=== PATIENT | female | born 1935 | race Caucasian/White ===

== ENCOUNTER → 2019-05-06 | Outpatient (CLI) | payer MEDICARE ==
--- NOTE | ~2019-05-06 | SLPPN ---
[place], [place] LANDSCAPE DESIGNER PROGRESS NOTE NAME: CAMMIE SOSA V UNIT #: [id number] ROOM: DOCTOR: WESLEY ORTEGA Patient Name: CAMMIE SOSA Date: 05/06/2019 Patient Date of : 1935 [facility] Start of Care: 05/03/2019 Reason for Treatment: PS Visits since start of care: 2 Primary Care Physician: WESLEY ORTEGA Referring Physician: WESLEY ORTEGA Speech-Language Pathology Treatment Note Reason for Visit PS Arrival Information Patient identity verified Subjective Initial evaluation created to initiate the electronic medical record. Please see [employer] for details. No indications of abuse or neglect Medical History Past Medical History Pneumonia Seizures SuperBill Visit Start Time 9:00 AM Visit End Time 10:00 AM Visit Duration 60 minutes Procedures CPT [place] Code Intervention Modifier Minutes Units 1601059 MOTION FLUOROSCOPY/SWALLOW 60 1 17570 Total Timed Minutes 0 Total Treatment Minutes 60 Therapist Signature(s) Signed By: Kelli Paredes MA CF-LANDSCAPE DESIGNER State License #: [id number] 05/06/2019, 2:48 PM CM:CYNTHIA 1451 1450 [facility]
--- NOTE | ~2019-05-06 | SLPREE ---
[place], [place] BEHAVIORAL HEALTH DIRECTOR PLAN OF CARE REEVALUATION NAME: CAMMIE SOSA V UNIT #: [id number] ROOM: DOCTOR: WESLEY ORTEGA Patient Name: CAMMIE SOSA Date: 05/11/2019 Patient Date of : 1935 [facility] Start of Care: 05/03/2019 Reason for Treatment: PS Visits since start of care: 3 Primary Care Physician: WESLEY ORTEGA Referring Physician: WESLEY ORTEGA Speech-Language Pathology Re-Evaluation Plan of Care Diagnosis Onset Date G45.9 Transient cerebral ischemic attack, unspecified 04/26/2019 I69.919 Unspecified symptoms and signs involving cognitive functions following unspecified cerebrovascular disease R47.01 Aphasia Reason for Visit PS Arrival Information Patient identity verified Subjective Patient seen for continued evaluation and beginning of treatment. She was pleasant and cooperative throughout duration of session. She reported continued fatigue and reports vision difficulties. She reported mid-line to peripheral right-sided visual difficulty, stating she feels like there is something in her vision or that the floor, table, etc. is moving. Patient reported having ongoing headache this week. No indications of abuse or neglect Medical History Past Medical History Pneumonia Seizures No changes to Allergies Assessment Assessment Patient demonstrating mild cognitive-linguistic deficits and mild language impairments. Recommended patient continue with treatment 1 time weekly to target skills to improve attention, memory, visuospatial skills, and executive functions. These skills are important for patient as she plans to return to work. MBS results revealed no penetration or aspiration across each evaluated consistency, and patient was recommended regular diet with safe swallowing strategies. Prognosis Excellent potential to reach the established goals Barriers to Lares and Goals Clinician Established Goals Short Term Goals 1. Patient will utilize strategies (circumlocution, gesturing, describing object, etc.) to compensate for word finding difficulties in structured task and increasing to conversational level with 90% accuracy across 3 consecutive sessions by 06/29/2019 - Modified. Patient will utilize strategies (circumlocution, gesturing, describing object, etc.) to [place], [place] BEHAVIORAL HEALTH DIRECTOR PLAN OF CARE REEVALUATION NAME: CAMMIE SOSA V UNIT #: [id number] ROOM: DOCTOR: WESLEY ORTEGA compensate for word finding difficulties in structured task and increasing to conversational level with 90% accuracy across 3 consecutive sessions by 06/29/2019 - Revised. 2. Patient will answer questions (yes/no, open-ended, multiple choice, etc.) following written material with 85% accuracy with fading clinician cues across 3 consecutive sessions by 2018 - Modified. Patient will answer questions (yes/no, open-ended, multiple choice, etc.) following written material with 85% accuracy with fading clinician cues across 3 consecutive sessions by - Revised. 3. Patient will use strategies with minimum clinician cuing to increase generative naming closer to average levels on 4/5 opportunities by 06/29/2019. 4. Patient will perform visual scanning tasks of increasing complexity with fading clinician cues with 85% accuracy on 4/5 opportunities by 06/29/2019. 5. Patient will use strategies (association, pneumonic devices, etc.) to demonstrate memory recall for verbally and visually presented stimulus with use of strategies with 80% accuracy on 4/5 opportunities by 06/29/2019. 6. Patient will demonstrate problem solving skills during structured tasks with minimal clinician cuing with 80% accuracy on 4/5 opportunities by 06/29/2019. 7. Patient will demonstrated sustained and alternating attention during targeted tasks with 85% accuracy with minimum clinician cuing on 4/5 opportunities by 06/29/2019. Archived Goals Clinician Established Goals Nursing Home Goals 1. Patient will demonstrate tolerance of least restrictive diet with no overt s/s of penetration/ (05/12/2019) aspiration across all trials by 06/29/2019. Short Term Goals 1. Patient will formulate well-organized, grammatically complete sentences regarding a given (05/12/2019) topic with 90% accuracy during structured task with fading clinician cues across 3 consecutive sessions by 06/29/2019. Notes Swallowing goal discontinued due to functional oropharyngeal swallow determined by MBS. 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 Plan Treatment Plan Intervention 13413 - [facility] ([facility] GO515 - Cognitive Skills Dev, 15 MIN [place], [place] BEHAVIORAL HEALTH DIRECTOR PLAN OF CARE REEVALUATION NAME: CAMMIE SOSA V UNIT #: [id number] ROOM: DOCTOR: WESLEY ORTEGA [id number] - TREATMENT IND.>30 MIN Treatment Frequency Weekly Duration 10 Week(s) Therapist Signature(s) Signed By: Kelli Paredes MA [facility]-BEHAVIORAL HEALTH DIRECTOR State License #: [id number] 05/12/2019, 1:30 PM Referring Physician Signature I certify the need for these services furnished under this plan of treatment and while under my care. WESLEY ORTEGA Date/Time CM:ARI 34 34 [facility]
--- NOTE | ~2019-05-06 | PTDCS ---
[place], [place] PT DISCHARGE SUMMARY NAME: CAMMIE SOSA V UNIT #: [id number] ROOM: DOCTOR: WESLEY ORTEGA Patient Name: CAMMIE SOSA Date: 05/16/2019 Patient Date of : 1935 [facility] Start of Care: 05/03/2019 Reason for Treatment: PS Visits since start of care: 3 Primary Care Physician: WESLEY ORTEGA Referring Physician: WESLEY ORTEGA Physical Therapy Discharge Summary Physician's Communication Physician's Communication Items Physician's Communication TO: Dr. Ortega From: Jimmy Gardiner DPT Patient Name: Ailyn oSsa Date of : 1935 Message: The patient's daughter called our office to inform us the patient had another CVA and required hospitalization and potential surgical intervention. She will be discharged from PT at this time until she is able to return / stabilizes. Thank you. [facility] Visit Start Time 1:30 PM Visit End Time 1:31 PM Visit Duration 1 minutes Procedures CPT [place] Code Intervention Modifier Minutes Units 7020126 SP Non Billable Charge 1 1 21287 Total Timed Minutes 0 Total Treatment Minutes 1 Therapist Signature State License #: [id number] Date/Time CM:PTDCS 1353 1353 [facility]
--- NOTE | ~2019-05-06 | PTMRC ---
[place], [place] [facility]Y [facility] NAME: ANGIE HELM V UNIT #: [id number] ROOM: DOCTOR: WESLEY ORTEGA Patient Name: ANGIE HELM Date: 05/16/2019 Patient Number: [id number] Treating Therapist:Kelli Paredes Patient Date of : 1935 Location: [facility] Patient Diagnosis G45.9 Transient cerebral ischemic attack, unspecified 04/26/2019 I69.919 Unspecified symptoms and signs involving cognitive functions following unspecified cerebrovascular disease R47.01 Aphasia Visit Start Time 1:30 PM Visit End Time 1:31 PM Visit Duration 1 minutes Procedures CPT [place] Code Intervention Modifier Minutes Units 86437 [id number] SP Non Billable Charge 1 1 Total Timed Minutes 0 Total Treatment Minutes 1 Electronic Signature(s) Signed By: Date: Kelli Paredes MA, CCC-TABLE CUT OFF SAW OPERATOR 05/16/2019 13:44:28 Entered By: Kelli Paredes MA, CCC-TABLE CUT OFF SAW OPERATOR on 05/16/2019 13:44:05 Physician's Communication Patient Name: ANGIE HELM Date: 05/16/2019 Patient Number: [id number] Treating Therapist:Kelli Paredes Patient Date of : 1935 Location: [facility] Patient Physician's Communication Items Physician's Communication TO: Dr. Ortega From: Kelli CISNEROSTABLE CUT OFF SAW OPERATOR Patient Name: Angie Helm Date of : 1935 Message: Patient has been hospitalized due to CVA and carotid artery surgery. Patient is being discharged from outpatient speech/language therapy per insurance guidelines due to change in medical status. Patient will require a new order to continue with outpatient speech therapy services. Thank you. Electronic Signature(s) Signed By: Date: [place], [place] [facility] NAME: ANGIE HELM V UNIT #: [id number] ROOM: DOCTOR: WESLEY ORTEGA Allyson MA CCC-TABLE CUT OFF SAW OPERATOR 05/16/2019 13:44:28 Entered By: Kelli Paredes MA, CCC-TABLE CUT OFF SAW OPERATOR on 05/16/2019 13:43:34 CM:[facility] 0 0 [facility]
--- NOTE | ~2019-05-06 | SHMRC ---
[place], [place] [facility]AP[facility] NAME: [facility]MIE [facility]OSA [facility] [id number] UNIT #: [id number] ROOM: DOCTOR: WESLEY ORTEGA Patient Name: CAMMIE SOSA Date: 05/06/2019 Patient Number: [id number] Treating Therapist:Kelli Paredes Patient Date of : 1935 Location: [facility] Patient Reason for Visit PS Electronic Signature(s) Signed By: Date: Kelli Paredes MA CF-INSURANCE PROFESSIONAL 05/06/2019 14:48:03 Entered By: Kelli Paredes MA CF-INSURANCE PROFESSIONAL on 05/06/2019 14:44:49 Arrival Information Patient Name: CAMMIE SOSA Date: 05/06/2019 Patient Number: [id number] Treating Therapist:Kelli Paredes Patient Date of : 1935 Location: [facility] Patient Patient identity verified Subjective Initial evaluation created to initiate the electronic medical record. Please see [facility] for details. No indications of abuse or neglect Electronic Signature(s) Signed By: Date: Kelli Paredes MA CF-INSURANCE PROFESSIONAL 05/06/2019 14:48:03 Entered By: Kelli Paredes MA-INSURANCE PROFESSIONAL on 05/06/2019 14:44:49 Medical History Patient Name: CAMMIE SOSA Date: 05/06/2019 Patient Number: [id number] Treating Therapist:Kelli Paredes Patient Date of : 1935 Location: [facility] Patient Past Medical History Pneumonia Seizures Electronic Signature(s) Signed By: Date: Kelli Paredes MA-INSURANCE PROFESSIONAL 05/06/2019 14:48:03 Entered By: Kelli Paredes MA CF-INSURANCE PROFESSIONAL on 05/06/2019 14:44:49 Allergy List Patient Name: CAMMIE SOSA Date: 05/06/2019 Patient Number: [id number] Treating Therapist:Kelli Paredes Patient Date of : 1935 Location: [facility] Patient Electronic Signature(s) Signed By: Date: Kelli Paredes MA CF-INSURANCE PROFESSIONAL 05/06/2019 14:48:03 Entered By: Kelli Paredes MA CF-INSURANCE PROFESSIONAL on 05/06/2019 14:44:49 Arrival Information Patient Name: CAMMIE SOSA Date: 05/06/2019 Patient Number: [id number] Treating Therapist:Kelli Paredes Patient Date of : 1935 Location: [facility] [place] Patient [place], [place] THERAPY [facility] NAME: CAMMIE SOSA V UNIT #: [id number] ROOM: DOCTOR: WESLEY ORTEGA Patient identity verified Subjective Initial evaluation created to initiate the electronic medical record. Please see [employer] for details. No indications of abuse or neglect Electronic Signature(s) Signed By: Date: Kelli Paredes MA-INSURANCE PROFESSIONAL 05/06/2019 14:48:03 Entered By: Kelli Paredes MA CF-INSURANCE PROFESSIONAL on 05/06/2019 14:44:49 SuperBill Patient Name: CAMMIE SOSA Date: 05/06/2019 Patient Number: [id number] Treating Therapist:Kelli Paredes Patient Date of : 1935 Location: [facility] Patient Diagnosis G45.9 Transient cerebral ischemic attack, unspecified 04/26/2019 I69.919 Unspecified symptoms and signs involving cognitive functions following unspecified cerebrovascular disease R13.13 Dysphagia, pharyngeal phase F80.2 Mixed receptive-expressive language disorder Visit Start Time 9:00 AM Visit End Time 10:00 AM Visit Duration 60 minutes Procedures CPT [place] Code Intervention Modifier Minutes Units 66875 3916198 MOTION FLUOROSCOPY/SWALLOW 60 1 Total Timed Minutes 0 Total Treatment Minutes 60 Electronic Signature(s) Signed By: Date: Kelli Paredes MA CF-INSURANCE PROFESSIONAL 05/06/2019 14:48:03 Entered By: Kelli Paredes MA CF-INSURANCE PROFESSIONAL on 05/06/2019 14:47:34 Chief Complaint Patient Name: CAMMIE SOSA Date: 05/06/2019 Patient Number: [id number] Treating Therapist:Kelli Paredes Patient Date of : 1935 Location: [facility] Patient Reason for Visit PS Electronic Signature(s) Signed By: Date: Kelli Paredes MA CF-INSURANCE PROFESSIONAL 05/06/2019 14:48:03 Entered By: Kelli Paredes MA CF-INSURANCE PROFESSIONAL on 05/06/2019 14:44:49 Medical History Patient Name: CAMMIE SOSA Date: 05/06/2019 Patient Number: [id number] Treating Therapist:Kelli Paredes Patient Date of : 1935 Location: [facility] [place] Patient Past Medical History Pneumonia [place], [place] [facility] NAME: CAMMIE SOSA V UNIT #: [id number] ROOM: DOCTOR: WESLEY ORTEGA Electronic Signature(s) Signed By: Date: Kelli Paredes MA CF-INSURANCE PROFESSIONAL 05/06/2019 14:48:03 Entered By: Kelli Paredes MA CF-INSURANCE PROFESSIONAL on 05/06/2019 14:44:49 Allergy List Patient Name: CAMMIE SOSA Date: 05/06/2019 Patient Number: [id number] Treating Therapist:Kelli Paredes Patient Date of : 1935 Location: [facility] Patient Electronic Signature(s) Signed By: Date: Kelli Paredes MA CF-INSURANCE PROFESSIONAL 05/06/2019 14:48:03 Entered By: Kelli Paredes MA CF-INSURANCE PROFESSIONAL on 05/06/2019 14:44:49 CM:[facility] 1451 1451 [facility]
--- NOTE | ~2019-05-06 | SHMRC ---
[place], [place] [id number] UNIT #: [id number] ROOM: DOCTOR: WESLEY ORTEGA Patient Name: CAMMIE SOAS Date: 05/11/2019 Patient Number: [id number] Treating Therapist:Kelli Paredes Patient Date of : 1935 Location: [facility] [place] Patient Reason for Visit PS Electronic Signature(s) Signed By: Date: Kelli Paredes MA, CCC-ELECTRIC TRAIN DRIVER 05/12/2019 13:30:28 Entered By: Kelli Paredes MA, CCC-ELECTRIC TRAIN DRIVER on 05/12/2019 09:26:17 Arrival Information Patient Name: CAMMIE SOSA Date: 05/11/2019 Patient Number: [id number] Treating Therapist:Kelli Paredes Patient Date of : 1935 Location: [facility] Patient Patient identity verified Subjective Patient seen for continued evaluation and beginning of treatment. She was pleasant and cooperative throughout duration of session. She reported continued fatigue and reports vision difficulties. She reported mid-line to peripheral right-sided visual difficulty, stating she feels like there is something in her vision or that the floor, table, etc. is moving. Patient reported having ongoing headache this week. No indications of abuse or neglect Electronic Signature(s) Signed By: Date: Kelli Paredes MA 05/12/2019 13:30:28 Entered By: Kelli Paredes MAELECTRIC TRAIN DRIVER on 05/12/2019 09:26:17 Medical History Patient Name: CAMMIE SOSA Date: 05/11/2019 Patient Number: [id number] Treating Therapist:Kelli Paredes Patient Date of : 1935 Location: [facility] Patient Past Medical History Pneumonia Seizures Electronic Signature(s) Signed By: Date: Kelli Paredes MA 05/12/2019 13:30:28 Entered By: Kelli Paredes MA on 05/12/2019 09:26:17 Allergy List Patient Name: CAMMIE SOSA Date: 05/11/2019 Patient Number: [id number] Treating Therapist:Kelli Paredes Patient Date of : 1935 Location: [facility] Patient No changes to Allergies Electronic Signature(s) Signed By: Date: Kelli Paredes MA, CCC-ELECTRIC TRAIN DRIVER 05/12/2019 13:30:28 [place], [place] TH[facility] NAME: CAMMIE SOSA V UNIT #: [id number] ROOM: DOCTOR: WESLEY ORTEGA Entered By: Kelli Paredes MA, CCC-ELECTRIC TRAIN DRIVER on 05/12/2019 09:26:17 Arrival Information Patient Name: CAMMIE SOSA Date: 05/11/2019 Patient Number: [id number] Treating Therapist:Kelli Paredes Patient Date of : 1935 Location: [facility] Patient Patient identity verified Subjective Patient seen for continued evaluation and beginning of treatment. She was pleasant and cooperative throughout duration of session. She reported continued fatigue and reports vision difficulties. She reported mid-line to peripheral right-sided visual difficulty, stating she feels like there is something in her vision or that the floor, table, etc. is moving. Patient reported having ongoing headache this week. No indications of abuse or neglect Electronic Signature(s) Signed By: Date: Kelli Paredes MA, CCC-ELECTRIC TRAIN DRIVER 05/12/2019 13:30:28 Entered By: Kelli Paredes MA, CCC-ELECTRIC TRAIN DRIVER on 05/12/2019 09:26:17 Assessment Patient Name: CAMMIE SOSA Date: 05/11/2019 Patient Number: [id number] Treating Therapist:Kelli Paredes Patient Date of : 1935 Location: [facility] Patient Diagnosis Onset Date G45.9 Transient cerebral ischemic attack, unspecified 04/26/2019 I69.919 Unspecified symptoms and signs involving cognitive functions following unspecified cerebrovascular disease R47.01 Aphasia Assessment Patient demonstrating mild cognitive-linguistic deficits and mild language impairments. Recommended patient continue with treatment 1 time weekly to target skills to improve attention, memory, visuospatial skills, and executive functions. These skills are important for patient as she plans to return to work. MBS results revealed no penetration or aspiration across each evaluated consistency, and patient was recommended regular diet with safe swallowing strategies. Prognosis Excellent potential to reach the established goals Electronic Signature(s) Signed By: Date: Kelli Paredes MA CCC-ELECTRIC TRAIN DRIVER 05/12/2019 13:30:28 Entered By: Kelli Paredes MA CCC-ELECTRIC TRAIN DRIVER on 05/12/2019 13:28:08 Barriers to [place] and Goals Patient Name: CAMMIE SOSA Date: 05/11/2019 Patient Number: [id number] Treating Therapist:Kelli Paredes Patient Date of : 1935 Location: [place], [place] [facility] NAME: CAMMIE SOSA V UNIT #: [id number] ROOM: DOCTOR: WESLEY ORTEGA Patient Clinician Established Goals Short Term Goals 1. Patient will utilize strategies (circumlocution, gesturing, describing object, etc.) to compensate for word finding difficulties in structured task and increasing to conversational level with 90% accuracy across 3 consecutive sessions by 06/29/2019 - Modified. Patient will utilize strategies (circumlocution, gesturing, describing object, etc.) to compensate for word finding difficulties in structured task and increasing to conversational level with 90% accuracy across 3 consecutive sessions by 06/29/2019 - Revised. 2. Patient will answer questions (yes/no, open-ended, multiple choice, etc.) following written material with 85% accuracy with fading clinician cues across 3 consecutive sessions by 06/29/2019 - Modified. Patient will answer questions (yes/no, open-ended, multiple choice, etc.) following written material with 85% accuracy with fading clinician cues across 3 consecutive sessions by 06/29/2019 - Revised. 3. Patient will use strategies with minimum clinician cuing to increase generative naming closer to average levels on 4/5 opportunities by 06/29/2019. 4. Patient will perform visual scanning tasks of increasing complexity with fading clinician cues with 85% accuracy on 4/5 opportunities by 06/29/2019. 5. Patient will use strategies (association, pneumonic devices, etc.) to demonstrate memory recall for verbally and visually presented stimulus with use of strategies with 80% accuracy on 4/5 opportunities by 06/29/2019. 6. Patient will demonstrate problem solving skills during structured tasks with minimal clinician cuing with 80% accuracy on 4/5 opportunities by 06/29/2019. 7. Patient will demonstrated sustained and alternating attention during targeted tasks with 85% accuracy with minimum clinician cuing on 4/5 opportunities by 06/29/2019. Archived Goals Clinician Established Goals Penitentiary Goals 1. Patient will demonstrate tolerance of least restrictive diet with no overt s/s of (05/12/2019) penetration/aspiration across all trials by 06/29/2019. Short Term Goals 1. Patient will formulate well-organized, grammatically complete sentences (05/12/2019) regarding a given topic with 90% accuracy during structured task with fading clinician cues across 3 consecutive sessions by 06/29/2019. Notes Swallowing goal discontinued due to functional oropharyngeal swallow determined by MBS. 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 Electronic Signature(s) Signed By: Date: Kelli Paredes MA 05/12/2019 13:30:28 Entered By: Kelli Paredes MA on 05/12/2019 13:29:10 [employer] Patient Name: CAMMIE SOSA Date: 05/11/2019 [place], [place] [facility] NAME: CAMMIE SOSA [place] UNIT #: [id number] ROOM: DOCTOR: WESLEY ORTEGA Patient Number: [id number] Treating Therapist:Kelli Paredes Patient Date of : 1935 [facility] Patient Diagnosis G45.9 Transient cerebral ischemic attack, unspecified 04/26/2019 I69.919 Unspecified symptoms and signs involving cognitive functions following unspecified cerebrovascular disease R47.01 Aphasia Visit Start Time 8:00 AM Visit End Time 9:00 AM Visit Duration 60 minutes Procedures CPT [place] Code Intervention Modifier Minutes Units GO515 t [id number] Cognitive Skills Dev, 15 MIN 60 4 Total Timed Minutes 60 Total Treatment Minutes 60 Electronic Signature(s) Signed By: Date: Kelli Paredes MA 05/12/2019 13:30:28 Entered By: Kelli Paredes MA on 05/12/2019 13:30:11 Chief Complaint Patient Name: CAMMIE SOSA Date: 05/11/2019 Patient Number: [id number] Treating Therapist:Kelli Paredes Patient Date of : 1935 Location: [facility] [place] Patient Reason for Visit PS Electronic Signature(s) Signed By: Date: Kelli Paredes MA, CCC-ELECTRIC TRAIN DRIVER 05/12/2019 13:30:28 Entered By: Kelli Paredes MA, CCC-ELECTRIC TRAIN DRIVER on 05/12/2019 09:26:17 Medical History Patient Name: CAMMIE SOSA Date: 05/11/2019 Patient Number: [id number] Treating Therapist:Kelli Paredes Patient Date of : 1935 Location: [facility] Patient Past Medical History Pneumonia Seizures Electronic Signature(s) Signed By: Date: Kelli Paredes MA, CCC-ELECTRIC TRAIN DRIVER 05/12/2019 13:30:28 Entered By: Kelli Paredes MA, CCC-ELECTRIC TRAIN DRIVER on 05/12/2019 09:26:17 Mental Status Patient Name: CAMMIE SOSA Date: 05/11/2019 Patient Number: [id number] Treating Therapist:Kelli Paredes Patient Date of : 1935 Location: [facility] Patient Level of Consciousness Alert Attention No apparent deficits [place], [place] TH[facility] NAME: CAMMIE SOSA V UNIT #: [id number] ROOM: DOCTOR: WESLEY ORTEGA Orientation Person, Place, Time/Date, Situation Communication No apparent deficits Mood and Affect Appropriate to situation Electronic Signature(s) Signed By: Date: Kelli Paredes MA, CCC-ELECTRIC TRAIN DRIVER 05/12/2019 13:30:28 Entered By: Kelli Paredes MA, CCC-ELECTRIC TRAIN DRIVER on 05/12/2019 09:27:32 Pain Assessment Patient Name: CAMMIE SOSA Date: 05/11/2019 Patient Number: [id number] Treating Therapist:Kelli Paredes Patient Date of : 1935 Location: [facility] Patient Electronic Signature(s) Signed By: Date: Kelli Paredes MA, CCC-ELECTRIC TRAIN DRIVER 05/12/2019 13:30:28 Entered By: Kelli Paredes MA CCC-ELECTRIC TRAIN DRIVER on 05/12/2019 09:27:04 Plan Patient Name: CAMMIE SOSA Date: 05/11/2019 Patient Number: [id number] Treating Therapist:Kelli Paredes Patient Date of : 1935 Location: [facility] Patient Treatment Plan Intervention 27564 - Eval SH Lang comprehend/express ([facility]) GO515 - Cognitive Skills Dev, 15 MIN 32646 - TREATMENT IND.>30 MIN Treatment Frequency Weekly Duration 10 Week(s) Electronic Signature(s) Signed By: Date: Kelli Paredes MA CCC-ELECTRIC TRAIN DRIVER 05/12/2019 13:30:28 Entered By: Kelli Paredes MA, CCC-ELECTRIC TRAIN DRIVER on 05/12/2019 13:29:23 Allergy List Patient Name: CAMMIE SOSA Date: 05/11/2019 Patient Number: [id number] Treating Therapist:Kelli Paredes Patient Date of : 1935 Location: [facility] Patient No changes to Allergies Electronic Signature(s) Signed By: Date: Kelli Paredes MA CCC-ELECTRIC TRAIN DRIVER 05/12/2019 13:30:28 Entered By: Kelli Paredes MA CCC-ELECTRIC TRAIN DRIVER on 05/12/2019 09:26:17 Standardized Tests Patient Name: CAMMIE SOSA Date: 05/11/2019 Patient Number: [id number] Treating Therapist:Kelli Paredes Patient Date of : 1935 Location: [facility] Patient Cognitive Linguistic Quick Test (CLQT) Cognitive Linguistic Quick Test (CLQT) Description The CLQT is a criterion-referenced measure designed to quickly identify patterns of strengths and weaknesses in [address] [place] [address] [facility]AP[facility] NAME: CAMMIE SOSA [place] [facility] [id number] UNIT #: [id number] ROOM: DOCTOR: WESLEY ORTEGA cognitive domains: Attention, Memory, Executive Functions, Language and Visuospatial skills. The CLQT can be used with adults 18-89 years of age with known or suspected neurological dysfunction for the purposes of directing treatment, identifying the need for more in-depth testing, or determining a differential diagnosis. Score Sub-Test Severity Rating Attention Mild Memory Moderate Executive Functions Mild Language Mild Visuospatial Skills Mild Composite Severity Rating Mild Clock Drawing Severity Rating Within Normal Limits Interpretation of Cognitive Linguistic Quick Test (CLQT) Patient demonstrating cognitive-linguistic deficits, with an overall mild severity level. On individual tasks, patient demonstrated difficulty during symbol cancellation, symbol trails, generative naming, design memory, and design generation. Patient was below the cut score for her age group on two tasks, including generative naming and design memory. Tasks relating to these tasks will be targeted to improve cognitive skills. Cognitive Linguistic Quick Test (CLQT). Copyright (C) 2000 [employer] Used with permission. All rights reserved. Electronic Signature(s) Signed By: Date: Kelli Paredes MA, CCC-ELECTRIC TRAIN DRIVER 05/12/2019 13:30:28 Entered By: Kelli Paredes MA, CCC-ELECTRIC TRAIN DRIVER on 05/12/2019 10:40:00 Subjective Details Patient Name: LURDES SOSASA Date: 05/11/2019 Patient Number: [id number] Treating Therapist:Kelli Paredes Patient Date of : 1935 Location: [facility] Patient Nature of Complaint/Subjective Report Cognitive impairments following TIA Behavior Mood/Affect: Pleasant, Positive affect Receptiveness to Treatment: Cooperative Activity Level: Active and alert, Sleepy/Fatigued Behavior Comments Patient pleasant and cooperative throughout duration of session. She reported that she continues to feel tired. Electronic Signature(s) Signed By: Date: Kelli Paredes MA 05/12/2019 13:30:28 Entered By: Kelli Paredes MAELECTRIC TRAIN DRIVER on 05/12/2019 09:26:45 Treatment Patient Name: CAMMIE SOSA Date: 05/11/2019 [place], [place] [facility] NAME: LURDES SOSASA [place] [facility] [id number] UNIT #: [id number] ROOM: DOCTOR: WESLEY ORTEGA Patient Number: [id number] Treating Therapist:Kelli Paredes Patient Date of : 1935 Location: [facility] Patient Treatment Activities Patient will demonstrate visuospatial skills Treatment Task Performance/Comments Scanning for letters and word Visual scanning targeted with patient cued to drea off two target letters out of a field of 60, each time the letter occurs. On first trial, patient identified 17/23 (73%) of search target items. Patient cued to check her work, and found an additional three items, and again required a cue to find final letters. On second trial, patient independently checked over her work after first attempt and found additional items. After independently checking work, patient had found 23/26 (88%) items. She required cues to continue to search/scan for items, where she was able to find one more. Visual field was cut in half in order for patient to find remaining two target letters. Task complexity reduced to patient finding 1 letter in a field rather than 2. Patient found 13/13 items. Word search task given to patient. Patient demonstrated difficulty with task. Finger was used to help patient scan, however she appeared to be missing right side of the word search board. Patient reported that her technique was to look until she found words or words "stuck out" to her. Patient was given three target words to find. Patient began scanning at top of board, and cued to stop at each beginning letter and looking for the word in each direction. While looking, patient began looking for a word that was not targeted. She was cued to correction. She required cues to search for and identify beginning letters and recall target words. Task required moderate assistance from clinician to complete. Patient will demonstrate sustained attention Treatment Task Performance/Comments Identifying target item when verbally Patient verbally provided with target letter to listen for. Patient directed to click pen each time she heard the identified letter. Clinician verbally presenting a series of presented random letters, with patient correctly identifying 13/13 with no false positives. Patient will demonstrate word recall and mental manipulation Performance/Comments Clinician verbally presenting 3 words in a scrambled, out of order sentence. Patient directed to place the words into correct order to form a sentence. Patient with independent completion, requiring occasional repetition of target words with 75% accuracy. Electronic Signature(s) Signed By: Date: [facility] NAME: CAMMIE SOSA V UNIT #: [id number] ROOM: DOCTOR: WESLEY ORTEGA Allyson MA CCC-ELECTRIC TRAIN DRIVER 05/12/2019 13:30:28 Entered By: Kelli Paredes MA, CCC-ELECTRIC TRAIN DRIVER on 05/12/2019 10:35:58 CM:PTMRC [age] [facility]
--- NOTE | ~2019-05-06 | SLPRE ---
[place], [place] [employer] REEVALUATION NAME: CAMMIE SOSA V UNIT #: [id number] ROOM: DOCTOR: WESLEY ORTEGA Patient Name: CAMMIE SOSA Date: 05/11/2019 Patient Date of : 1935 [facility] Start of Care: 05/03/2019 Reason for Treatment: PS Primary Care Physician: WESLEY ORTEGA Referring Physician: WESLEY ORTEGA Speech-Language Pathology Re-Evaluation Diagnosis Onset Date G45.9 Transient cerebral ischemic attack, unspecified 04/26/2019 I69.919 Unspecified symptoms and signs involving cognitive functions following unspecified cerebrovascular disease R47.01 Aphasia Reason for Visit PS Arrival Information Patient identity verified Subjective Patient seen for continued evaluation and beginning of treatment. She was pleasant and cooperative throughout duration of session. She reported continued fatigue and reports vision difficulties. She reported mid-line to peripheral right-sided visual difficulty, stating she feels like there is something in her vision or that the floor, table, etc. is moving. Patient reported having ongoing headache this week. No indications of abuse or neglect Medical History Past Medical History Pneumonia Seizures No changes to Allergies Subjective Details Nature of Complaint/Subjective Report Cognitive impairments following TIA Behavior Mood/Affect: Pleasant, Positive affect Receptiveness to Treatment: Cooperative Activity Level: Active and alert, Sleepy/Fatigued Behavior Comments Patient pleasant and cooperative throughout duration of session. She reported that she continues to feel tired. Mental Status Level of Consciousness Alert Attention No apparent deficits Orientation Person, Place, Time/Date, Situation Communication No apparent deficits Mood and Affect Appropriate to situation Pain Assessment Treatment Treatment Activities Patient will demonstrate visuospatial skills [place], [place] [employer] REEVALUATION NAME: CAMMIE SOSA V UNIT #: [id number] ROOM: DOCTOR: WESLEY ORTEGA Treatment Task Performance/Comments Scanning for letters and word search Visual scanning targeted with patient cued to drea off two target letters out of a field of 60, each time the letter occurs. On first trial, patient identified 17/23 (73%) of target items. Patient cued to check her work, and found an additional three items, and again required a cue to find final letters. On second trial, patient independently checked over her work after first attempt and found additional items. After independently checking work, patient had found 23/26 (88%) items. She required cues to continue to search/scan for items, where she was able to find one more. Visual field was cut in half in order for patient to find remaining two target letters. Task complexity reduced to patient finding 1 letter in a field rather than 2. Patient found 13/13 items. Word search task given to patient. Patient demonstrated difficulty with task. Finger was used to help patient scan, however she appeared to be missing right side of the word search board. Patient reported that her technique was to look until she found words or words "stuck out" to her. Patient was given three target words to find. Patient began scanning at top of board, and cued to stop at each beginning letter and looking for the word in each direction. While looking, patient began looking for a word that was not targeted. She was cued to correction. She required cues to search for and identify beginning letters and recall target words. Task required moderate assistance from clinician to complete. Patient will demonstrate sustained attention Treatment Task Performance/Comments Identifying target item when verbally Patient verbally provided with target letter to listen for. Patient directed to click pen each time presented she heard the identified letter. Clinician verbally presenting a series of random letters, with patient correctly identifying 13/13 with no false positives. Patient will demonstrate word recall and mental manipulation Performance/Comments Clinician verbally presenting 3 words in a scrambled, out of order sentence. Patient directed to place the words into correct order to form a sentence. Patient with independent completion, requiring occasional repetition of target words with 75% accuracy. Standardized Tests Cognitive Linguistic Quick Test (CLQT) Cognitive Linguistic Quick Test (CLQT) Description The CLQT is a criterion-referenced measure designed to quickly identify patterns of strengths and weaknesses in 5 cognitive domains: Attention, Memory, Executive Functions, Language and Visuospatial skills. The CLQT can be used with adults 18-89 years of age with known or suspected neurological dysfunction for the purposes of directing treatment, identifying the need for [place], [place] [employer] REE[employer]UATION NAME: CAMMIE OSSA V UNIT #: [id number] ROOM: DOCTOR: WESLEY ORTEGA more in-depth testing, or determining a differential diagnosis. Score Sub-Test Severity Rating Attention Mild Memory Moderate Executive Functions Mild Language Mild Visuospatial Skills Mild Composite Severity Rating Mild Clock Drawing Severity Rating Within Normal Limits Interpretation of Cognitive Linguistic Quick Test (CLQT) Patient demonstrating cognitive-linguistic deficits, with an overall mild severity level. On individual tasks, patient demonstrated difficulty during symbol cancellation, symbol trails, generative naming, design memory, and design generation. Patient was below the cut score for her age group on two tasks, including generative naming and design memory. Tasks relating to these tasks will be targeted to improve cognitive skills. Cognitive Linguistic Quick Test (CLQT). Copyright (C) 2001 [facility] [employer] Used with permission. All rights reserved. Assessment Assessment Patient demonstrating mild cognitive-linguistic deficits and mild language impairments. Recommended patient continue with treatment 1 time weekly to target skills to improve attention, memory, visuospatial skills, and executive functions. These skills are important for patient as she plans to return to work. MBS results revealed no penetration or aspiration across each evaluated consistency, and patient was recommended regular diet with safe swallowing strategies. Prognosis Excellent potential to reach the established goals Barriers to [place] and Goals Clinician Established Goals Short Term Goals 1. Patient will utilize strategies (circumlocution, gesturing, describing object, etc.) to compensate for word finding difficulties in structured task and increasing to conversational level with 90% accuracy across 3 consecutive sessions by 06/29/2019 - Modified. Patient will utilize strategies (circumlocution, gesturing, describing object, etc.) to compensate for word finding difficulties in structured task and increasing to conversational level with 90% accuracy across 3 consecutive sessions by 06/29/2019 - Revised. 2. Patient will answer questions (yes/no, open-ended, multiple choice, etc.) following written material with 85% accuracy with fading clinician cues across 3 consecutive sessions by 2018 - Modified. Patient will answer questions (yes/no, open-ended, multiple choice, etc.) following written [place], [place] [employer] REE[employer]UATION NAME: LURDES SOSASA [place] UNIT #: [id number] ROOM: DOCTOR: WESLEY ORTEGA material with 85% accuracy with fading clinician cues across 3 consecutive sessions by - Revised. 3. Patient will use strategies with minimum clinician cuing to increase generative naming closer to average levels on 4/5 opportunities by 06/29/2019. 4. Patient will perform visual scanning tasks of increasing complexity with fading clinician cues with 85% accuracy on 4/5 opportunities by 06/29/2019. 5. Patient will use strategies (association, pneumonic devices, etc.) to demonstrate memory recall for verbally and visually presented stimulus with use of strategies with 80% accuracy on 4/5 opportunities by 06/29/2019. 6. Patient will demonstrate problem solving skills during structured tasks with minimal clinician cuing with 80% accuracy on 4/5 opportunities by 06/29/2019. 7. Patient will demonstrated sustained and alternating attention during targeted tasks with 85% accuracy with minimum clinician cuing on 4/5 opportunities by 06/29/2019. Archived Goals Clinician Established Goals Maintenance Department Technician Goals 1. Patient will demonstrate tolerance of least restrictive diet with no overt s/s of penetration/ (05/12/2019) aspiration across all trials by 06/29/2019. Short Term Goals 1. Patient will formulate well-organized, grammatically complete sentences regarding a given (05/12/2019) topic with 90% accuracy during structured task with fading clinician cues across 3 consecutive sessions by 06/29/2019. Notes Swallowing goal discontinued due to functional oropharyngeal swallow determined by MBS. 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 [facility] Visit Start Time 8:00 AM Visit End Time 9:00 AM Visit Duration 60 minutes Procedures CPT [place] Code Intervention Modifier Minutes Units [id number] Cognitive Skills Dev, 15 MIN 60 4 GO515 t Total Timed Minutes 60 Total Treatment Minutes 60 Plan Treatment Plan Intervention 21429 - Elvia Ferrari [facility] ([facility]) [id number] - Cognitive Skills Dev, 15 MIN [place], [place] [employer] REE[employer]UATION NAME: LURDES SOSASA [place] UNIT #: [id number] ROOM: DOCTOR: WESLEY ORTEGA [id number] - TREATMENT IND.>30 MIN Treatment Frequency Weekly Duration 10 Week(s) Therapist Signature(s) Signed By: Kelli Paredes MA [facility] State License #: [id number] 05/12/2019, 1:30 PM CM:J LUIS [age] IS THERAPY [facility]
--- NOTE | ~2019-05-06 | PROC NOTE ---
[place], [place] PROCEDURE NOTE NAME: CAMMIE SOSA V UNIT #: [id number] ROOM: DOCTOR: FORREST RASCON-VISUAL EDUCATOR,KELLI BIRTHDATE: [birth year] DOS: 05/06/2019 VISIT TYPE: Outpatient. Doctor: Dr. Nico Fleming HISTORY: The patient is an 83-year-old female known to this clinician as she was recommended a modified barium swallow study following outpatient bedside swallowing evaluation. The patient has previous medical history significant for recurring TIA with most recent occurring 04/26/2019. The patient additionally has longstanding history of dysphagia with worsening symptoms after recent TIA. The patient additionally reports history of recurrent pneumonia. She reported occasional difficulties with liquids causing her to cough. Bedside evaluation revealed wet vocal quality following sips of thin liquids via cup. [facility] revealed mildly reduced lingual strength and range of motion with labial and buccal skills within functional limits. The patient is currently consuming a regular diet with thin liquids and denies difficulty with solid food items. METHODS AND MATERIALS USED FOR EXAM: The patient was positioned in the lateral plane and the exam was viewed under fluoroscopy and was videotaped. A variety of substances were used during this examination including barium coated applesauce, turkey sandwich and cookie and sips of nectar like x 1 and thin liquid barium via cup x 3. ORAL AND PHARYNGEAL PHASE: The patient demonstrated oral and pharyngeal phase of the swallow that was within functional limits. The patient demonstrated adequate control of the bolus with appropriate AP transfer and tongue to posterior pharyngeal wall contact. Increase in oral prep time was observed during trials of solid food items including turkey sandwich and cookie. The patient required 2 swallows to clear the oral cavity with solid food items. Initiation of pharyngeal swallow was delayed to the level of the vallecula across all trials. Moderate amounts of vallecular residue was observed following the trial of sandwich, which reduced to a mild amount when cued to perform additional dry swallow. Mild vallecular and posterior pharyngeal wall residue observed following trial of cookie. No penetration or aspiration was observed during all trials of solid and liquid substances. The patient additionally demonstrated naturally controlled small sips of liquid. Wet vocal quality was observed both speaking to the patient and following evaluation; however, no penetration or aspiration was observed. RESULTS AND RECOMMENDATIONS: The patient demonstrated oropharyngeal swallow that is within functional limits. While she demonstrated increase in oral prep time, vallecular residue and delayed initiation of the pharyngeal swallow, no penetration or aspiration occurred and demonstrated safe consumption of oral diet. The patient is recommended regular diet with thin liquids. Additionally, recommended to follow safe swallowing strategies which include sitting upright during all p.o. intake, alternating between solids and liquids to help clear pharyngeal residue, performing double swallow and clearing throat with dry swallow every few bites and drinks. Results and recommendations were shared with patient and the patient's daughter who verbalized understanding. Speech [place], [place] PROCEDURE NOTE NAME: CAMMIE SOSA V UNIT #: [id number] ROOM: DOCTOR: FORREST RASCON-VISUAL EDUCATORKELLI BIRTHDATE: [birth year] therapy is not recommended due to functional oropharyngeal swallow mechanism. Thank you for your consultation. Kelli Paredes CM:PROCNOTE:PROCEDURE NOTE [id number] KELLI PAREDES MA CF-VISUAL EDUCATOR
== END | disposition home or self-care (01) ==
LOC: RAD/SH 08:43
DX: R13.19 Other dysphagia (principal); G45.9 Transient cerebral ischemic attack, unspecified